=== PATIENT | male | born 1970 | race Caucasian/White ===

== ENCOUNTER 2025-02-07 16:03 | Emergency (ER) | payer OTHER ==
[~2025-02-07] VITALS: Ht 172.7 cm; Wt 93.9 kg
[2025-02-07 18:13] VITALS: BP 140/70; TEMP 98.5; O2SAT 99
== END 2025-02-07 18:14 | disposition home or self-care (01) ==
LOC: ER 16:10
DX: I47.10 Supraventricular tachycardia, unspecified (principal); I11.9 Hypertensive heart disease without heart failure; E78.5 Hyperlipidemia, unspecified; R00.2 Palpitations